=== PATIENT | male | born 1985 | race Two or more races ===

== ENCOUNTER 2017-03-25 20:06 | Emergency (ER) | payer MEDICAID ==
[~2017-03-25] VITALS: Ht 182.9 cm; Wt 102.1 kg
[2017-03-25 20:31] VITALS: BP 168/97
[2017-03-26] MEDS ORDERED: HYDROcodone-ACET 7.5/325MG TAB PO ONE (01:00)
== END 2017-03-26 00:59 | disposition home or self-care (01) ==
LOC: ER 20:06
DX: K02.7 Dental root caries (principal)